=== PATIENT | male | born 1975 | race Hispanic/Latino ===

== ENCOUNTER 2025-01-29 05:41 | Emergency (ER) | payer OTHER, BC ==
[~2025-01-29] VITALS: Ht 167.6 cm; Wt 93.0 kg
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
--- NOTE | 2025-01-29 07:10 | NUR ---
C-COLLAR REMOVED BY JAYCEE CALVO
[2025-01-29] MEDS ORDERED: CYCL5TAB3 PO (07:13)
[2025-01-29 07:27] VITALS: BP 136/72; PULSE 60; RESP 18; TEMP 98.2; O2SAT 99
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
== END 2025-01-29 07:28 | disposition home or self-care (01) ==
LOC: EDH 05:41
DX: R07.89 Other chest pain (principal); M54.2 Cervicalgia; V49.49XA Driver injured in collision with other motor vehicles in traffic accident, initial encounter; Y93.89 Activity, other specified; Y92.488 Other paved roadways as the place of occurrence of the external cause; Y99.8 Other external cause status
CPT/HCPCS: 70450; 72125; 99284